=== PATIENT | female | born 2000 | race Caucasian/White ===

== ENCOUNTER 2022-06-06 01:52 | Observation (INO) | payer BC ==
--- OUTSIDE RECORDS SUMMARY | 2022-06-06 01:55 | XMS REPORT | Continuity of Care Document ---
:2000 Author Organization [facility] t Address [address] [place] [address] [address]. [address] [place] [address] Care Team Providers Name Role Phone JEOVANNY DIANE BURNS Primary Care Physician Unavailable Ayo Panchal Attending Clinician Unavailable Kristal Amos Attending Clinician Unavailable Susan YE, Christine Attending Clinician Unavailable VISHAL PUTNAM Attending Clinician Unavailable Vishal Conte Attending Clinician Giuliano Maciel MD Attending Clinician ANASTASIIA COWART Attending Clinician Unavailable Provider, [facility] Attending Clinician Unavailable Gerda Pastrana Attending Clinician GERDA OR Attending Clinician Unavailable Payers Payer Name Policy Type Policy Number Effective Date Expiration Date S ource Problems Condition Condition Condition Status Onset Resolution Last Treating Co mments Source Name Details Category Date Date Treatment Clinician Date No known No known Disease Unive rs active active ity of problems problems [facility] Allergies, Adverse Reactions, Alerts Allergy Allergy Status Severity Reaction(s) Onset Inactive Treating Comm ents Source Name Type Date Date Clinician NO KNOWN Drug Active Univers ALLERGIE Class ity of S [facility] Social History Social Habit Start Date Stop Date Quantity Comments Source Exposure to Not sure [facility] SARS-CoV-2 (event) Medica l Branch Tobacco use and 2020-12-05 2020-12-05 Never used [facility] exposure 00:00:00 00:00:00 [facility] Sex Assigned At [birth year] [facility] 00:00:00 00:00:00 [facility] Smoking Status Start Date Stop Date Source Never smoker [facility] Medications Ordered Filled Start Stop Current Ordering Indication Dosage Frequency Signature Comments Components Source Medication Medication Date Date Medication? Clinician (SIG) Name Name naproxen Yes [id number] 500mg Take 1 Univers 500 mg 6-13 9107 tablet by ity of tablet 00:00: mouth 2 (two) Medical times Branch daily with meals. naproxen Yes [id number] 500mg Take 1 Univers 500 mg 6-13 9107 tablet by ity of tablet 00:00: mouth 2 (two) Medical times Branch daily with meals. naproxen Yes [id number] 500mg Take 1 Univers 500 mg 6-13 9107 tablet by ity of tablet 00:00: mouth 2 (two) Medical times Branch daily with meals. naproxen Yes [id number] 500mg Take 1 Univers 500 mg 6-13 9107 tablet by ity of tablet 00:00: mouth 2 (two) Medical times Branch daily with meals. AUROVELA FE Yes 1{tbl} Take 1 Un tonia 1-20, 28, 1 4-20 tablet by ity of mg-20 mcg 00:00: mouth [place] (21)/75 mg 00 daily. Medical (7) tablet Branch AUROVELA FE Yes 1{tbl} Take 1 Un tonia 1-20, 28, 1 4-20 tablet by ity of mg-20 mcg 00:00: mouth [place] (21)/75 mg 00 daily. Medical (7) tablet Branch AUROVELA FE Yes 1{tbl} Take 1 Un tonia 1-20, 28, 1 4-20 tablet by ity of mg-20 mcg 00:00: mouth [place] (21)/75 mg 00 daily. Medical (7) tablet Branch AUROVELA FE Yes 1{tbl} Take 1 Un tonia 1-20, 28, 1 4-20 tablet by ity of mg-20 mcg 00:00: mouth [place] (21)/75 mg 00 daily. Medical (7) tablet Branch Vital Signs Vital Name Observation Time Observation Value Comments Source Systolic blood 2021-05-04 19:56:00 125 mm[Hg] Univer sity of pressure [facility] Diastolic blood 2021-05-04 19:56:00 89 mm[Hg] Unive rsity of pressure [facility] Heart rate 2021-05-04 19:56:00 76 /min [facility] Body temperature 2021-05-04 19:56:00 36.5 Georgette Univ ers[facility] [place] [facility] Respiratory rate 2021-05-04 19:56:00 18 /min [facility] Body weight 2021-05-04 19:56:00 72.077 kg [facility] BMI 2021-05-04 19:56:00 25.65 kg/m2 [facility] Oxygen saturation in 2021-05-04 19:56:00 99 /min University of Arterial blood by [facility] Pulse oximetry Branch Systolic blood 2020-12-05 14:18:00 126 mm[Hg] Univer sity of pressure [facility] Diastolic blood 2020-12-05 14:18:00 81 mm[Hg] Unive rsity of pressure [facility] Heart rate 2020-12-05 14:17:00 77 /min [facility] Body temperature 2020-12-05 14:17:00 36.78 Georgette [facility] Respiratory rate 2020-12-05 14:17:00 16 /min Univ [facility] Body height 2020-12-05 14:17:00 167.6 cm [facility] Body weight 2020-12-05 14:17:00 68.04 kg [facility] BMI 2020-12-05 14:17:00 24.21 kg/m2 [facility] Oxygen saturation in 2020-12-05 14:17:00 98 /min University of Arterial blood by [facility] Pulse oximetry Branch Procedures This patient has no known procedures. Encounters Start End Encounter Admission Attending Care Care Encounter Source Date/Time Date/Time Type Type Clinicians Facility Department ID 2021-07-20 Outpatient YESI Panchal [facility] [id number] Common 13:29:35 Avnee [address] [facility] 2021-07-20 Outpatient YESI Panchal [facility] [id number] Common 13:29:30 Avnejohn [address] [facility] 2021-07-20 Outpatient Ansley STJONAHLC [facility] [id number] Common 13:28:05 Ayo [address] [facility] 2021-07-20 Outpatient Dandre STLMLC [facility] [id number] Common 11:24:53 Kristal [address] [facility] 2021-05-05 2021-05-05 Telephone MARJ Davis [id number] Univers 00:00:00 00:00:00 Christine GONZALEZ [id number] it y of [facility] [id number] Camron as [id number] [address] 2021-05-04 2021-05-04 [facility] [id number] Univers 14:00:00 14:24:44 VISHAL rodriguez o f [facility] 2021-05-04 2021-05-04 Urgent [facility] [id number] Univers 13:47:22 14:07:22 Care Vishal [facility] [id number] ity of [place] [id number] Camron as LATHA?BLEA [id number] Ct dical BALDEVE[address] [place] MEDICAL OFF[facility] 2021-01-03 2021-01-03 [facility] [id number] Univers 00:00:00 00:00:00 [facility] [id number] it y of [place] [id number] Camron as Professio [id number] Ct [address] Office Building One 2020-12-08 2020-12-08 Outpatient R SOFYA [facility] [id number] Univers 08:45:00 08:45:00 ANASTASIIA rodriguez [facility] 2020-12-05 2020-12-05 Urgent Provider, [facility] [id number] Univers 09:13:39 09:33:39 Care Gerda Ro [facility] [id number] ity of [place] [id number] [place]ron as Kady [phone] [address] [place] [address] Branch Office [facility] One 2020-12-05 2020-12-05 Outpatient Mynor RO [facility] [id number] Univers 09:20:00 09:20:00 GERDA rodriguez [facility] Results This patient has no known results.
[2022-06-06] MEDS ORDERED: FAMOTIDINE 20 MG/2 ML VIAL IV ONE (02:38)
[2022-06-06] MEDS ORDERED: MAGNES/ALUMIN/SIMET 30ML UCUP ONE (02:38)
[2022-06-06] MEDS ORDERED: MORPHINE 4 MG/ML SYR ONE (02:38)
[2022-06-06] MEDS ORDERED: ONDANSETRON 4 MG/2 ML VIAL ONE (02:38)
[2022-06-06] MEDS ORDERED: LIDOCAINE VISCOUS 2% SOLN 15 ML UDC ONE (02:38)
[2022-06-06 02:48] LABS: Urine Blood Negative (Negative); Urine Glucose Negative (Negative); Urine Protein Negative (Negative); Urine Specific Gravity >=1.030 (1.005-1.030)
[2022-06-06 03:28] LABS: Absolute Lymphocytes (CBC) 1.2 K/uL (0.7-4.9); Hematocrit 43.8 % (36.0-45.0); Lymphocytes % 11.6 % (15.3-44.8); MPV 8.2 fL (7.6-11.3); RBC Red Blood Cell Count 5.09 M/uL (3.86-4.86)
[2022-06-06 03:39] LABS: Urine Specific Gravity/Preg >1.030 (1.005-1.030)
[2022-06-06 03:49] LABS: Albumin 4.1 g/dL (3.4-5.0); Bilirubin Total 1.6 mg/dL (0.2-1.0); Potassium 3.9 mmol/L (3.5-5.1); Protein, Total 8.7 g/dL (6.4-8.2)
--- NOTE | 2022-06-06 05:18 | EDPHYS ---
Physician Documentation [facility] Name: Edel Rucker Age: 22 yrs Sex: Female : 2000 Arrival Date: 06/06/2022 Time: 01:55 Bed 14 Private MD: ED Physician Brandon Peres HPI: 06/06 02:44 This 22 yrs old Female presents to ER via Ambulatory with complaints of Abdominal Pain. rn 02:46 The patient presents with abdominal pain in the epigastric area, in the right upper rn quadrant. Onset: The symptoms/episode began/occurred yesterday. The symptoms do not radiate. Associated signs and symptoms: Pertinent positives: nausea and vomiting, Pertinent negatives: blood in stools, diarrhea, fever, hematuria, shortness of breath, vomiting. The symptoms are described as crampy, sharp. Modifying factors: The symptoms are alleviated by nothing, the symptoms are aggravated by touching the area. Severity of pain: At its worst the pain was moderate in the emergency department the pain has improved. The patient has experienced similar episodes in the past. The patient has not recently seen a physician. BANDER: 02:23 LMP N/A - control method vc1 Historical: - Allergies: 02:20 No Known Allergies; vc1 - Home Meds: 02:20 None [Active]; vc1 - PMHx: 02:20 None; vc1 - PSHx: 02:20 None; vc1 - Immunization history:: Client reports having NOT received the Covid vaccine. - Social history:: Smoking status: Patient denies any tobacco usage or history of. - Family history:: not pertinent. - Hospitalizations: : No recent hospitalization is reported. ROS: 02:46 Constitutional: Negative for fever, chills, and weight loss, Eyes: Negative for injury, rn pain, redness, and discharge, Neck: Negative for injury, pain, and swelling, Cardiovascular: Negative for palpitations, and edema, Respiratory: Negative for shortness of breath, cough, wheezing, and pleuritic chest pain, Abdomen/GI: + RUQ abd pain Back: Negative for injury and pain, MS/Extremity: Negative for injury and deformity, Skin: Negative for injury, rash, and discoloration, Neuro: Negative for headache, weakness, numbness, tingling, and seizure. Exam: 02:46 Constitutional: This is a well developed, well nourished patient who is awake, alert, rn and in no acute distress. Head/Face: Normocephalic, atraumatic. Cardiovascular: Regular rate and rhythm. No pulse deficits. Respiratory: No increased work of breathing, no retractions or nasal flaring. Abdomen/GI: soft, + RUQ and epigastric abd tenderness Skin: Warm, dry MS/ Extremity: Pulses equal, no cyanosis. Neuro: Awake and alert, GCS 15 Vital Signs: 02:14 Weight 77.11 kg; Height 5 ft. 6 in. (167.64 cm); Pain 7/10; vc1 02:24 BP 125 / 73; Pulse 85; Resp 17; Temp 97.5; Pulse Ox 100% ; vc1 03:32 BP 132 / 55; Pulse 64; Resp 18; Temp 97.8; Pulse Ox 99% on R/A; Pain 2/10; pf1 04:30 BP 117 / 67; Pulse 77; Resp 18; Pulse Ox 100% ; Pain 0/10; pf1 05:30 BP 115 / 61; Pulse 74; Resp 18; Temp 99.5; Pulse Ox 99% ; Pain 0/10; pf1 06:30 BP 114 / 61; Pulse 65; Resp 18; Pulse Ox 98% ; Pain 1/10; pf1 02:14 Body Mass Index 27.44 (77.11 kg, 167.64 cm) vc1 MDM: 01:56 Patient medically screened. rn 05:14 Differential diagnosis: cholecystitis, Cholelithiasis, diverticulitis, gastritis, rn gastroesophageal reflux disease, non-specific abd pain, pancreatitis. Data reviewed: vital signs, nurses notes, lab test result(s), radiologic studies, CT scan, ultrasound, and as a result, I will admit patient. Counseling: I had a detailed discussion with the patient and/or guardian regarding: the historical points, exam findings, and any diagnostic results supporting the discharge/admit diagnosis, lab results, radiology results, the need for further work-up and treatment in the hospital. Response to treatment: the patient's symptoms have markedly improved after treatment, and as a result, I will admit patient. Admission orders: after a detailed discussion of the patient's condition and case, the admit orders are written by me. ED course: Pt with hours of pain, cholelithiasis with mild gallbladder swelling, no cholecystitis, but abnormal LFTs without any to compare to. Will admit for further w/u, MRCP, GI consult, and surgical consult. . 06/06 02:21 Order name: CBC with Diff; Complete Time: 03:46 06/06 02:21 Order name: CMP; Complete Time: 03:51 06/06 02:21 Order name: Lipase; Complete Time: 03:51 06/06 02:48 Order name: Urine Dipstick-Ancillary; Complete Time: 03:01 EDPA 06/06 02:49 Order name: Urine --Ancillary (enter results); Complete Time: 03:46 [facility] 06/06 05:18 Order name: SARS RAPID; Complete Time: 18:04 06/06 02:21 Order name: CT Abd/Pelvis - IV Contrast Only 06/06 02:21 Order name: US Abdomen Limited 06/06 09:46 Order name: MRI; Complete Time: 18:04 [facility] 06/06 11:19 Order name: CBC with Automated Diff; Complete Time: 18:04 [facility] 06/06 12:06 Order name: Comprehensive Metabolic Panel; Complete Time: 18:04 [facility] 06/06 12:07 Order name: Magnesium; Complete Time: 18:04 [facility] 06/06 12:07 Order name: Lipase; Complete Time: 18:04 [facility] 06/06 02:21 Order name: IV Saline Lock; Complete Time: 03:23 06/06 02:21 Order name: Labs collected and sent; Complete Time: 03:23 06/06 02:21 Order name: Urine Dipstick-Ancillary (obtain specimen); Complete Time: 02:47 06/06 02:21 Order name: Urine Test (obtain specimen); Complete Time: 02:47 rn Administered Medications: 03:00 Drug: Pepcid (famotidine) 20 mg Route: IVP; Site: left antecubital; pf1 03:33 Follow up: Response: Adverse reaction, Physician notified; Pain is decreased; RASS: pf1 Alert and Calm (0) 03:00 Drug: Zofran (Ondansetron) 4 mg Route: IVP; Site: left antecubital; pf1 03:33 Follow up: Response: No adverse reaction; Nausea is decreased pf1 03:00 Drug: morphine 4 mg Route: IVP; Infused Over: 4 mins; Site: left antecubital; pf1 03:33 Follow up: Response: Adverse reaction, Physician notified; Pain is decreased; RASS: pf1 Alert and Calm (0) 03:14 Drug: GI Cocktail without - (Maalox Suspension 30 ml, Lidocaine Liquid 2 % 15 pf1 ml) Route: PO; 03:32 Follow up: Response: Pain is decreased; RASS: Alert and Calm (0) pf1 Disposition Summary: 06/06/22 05:17 Hospitalization Ordered Hospitalization Status: Observation rn Provider: Karissa Peralta rn Condition: Stable rn Problem: new rn Symptoms: have improved rn Bed/Room Type: Standard rn Location: Telemetry/MedSurg (observation)(06/06/22 18:55) bd Room Assignment: [facility](06/06/22 18:55) bd Diagnosis - Other cholelithiasis without obstruction rn - Abnormal results of liver function studies rn - Abdominal pain, unspecified finance intern Instructions: - Discharge Summary Sheet sb4 - Magnetic Resonance Cholangiopancreatogram sb4 Forms: - Medication Reconciliation Form rn - SBAR form rn Signatures: Dispatcher [employer] EDMigdalia Horton Roman, MD MD rn Garcia, Cindy, RN RN cg Calcote, Vanessa, RN RN Haley Bolden PA-C PAGretchen sb4 Namrata aguilera RN RN pf1 Corrections: (The following items were deleted from the chart) 06:17 05:17 Telemetry/MedSurg (observation) rn cg 06:17 05:17 rn cg 18:55 06:17 [facility] ER HOLD cg bd 18:55 06:17 ERHOLD- cg bd
--- NOTE | 2022-06-06 05:18 | ER ---
Nurse's Notes [facility] Name: Edel Rucker Age: 22 yrs Sex: Female : 2000 Arrival Date: 06/06/2022 Time: 01:55 Bed 14 Private MD: Diagnosis: Other cholelithiasis without obstruction;Abnormal results of liver function studies;Abdominal pain, unspecified Presentation: 06/06 02:14 Chief complaint: Patient states: "I am having abdominal pain on my right side that is vc1 moving up to my chest.". Coronavirus screen: Vaccine status: Patient reports being unvaccinated. At this time, the client does not indicate any symptoms associated with coronavirus-19. Ebola Screen: No symptoms or risks identified at this time. Risk Assessment: Do you want to hurt yourself or someone else? Patient reports no desire to harm self or others. Onset of symptoms is unknown. 02:14 Method Of Arrival: Ambulatory vc1 02:14 Acuity: CHARLENE 3 vc1 02:26 Initial Sepsis Screen: Does the patient meet any 2 criteria? No. Patient's initial vc1 sepsis screen is negative. Does the patient have a suspected source of infection? Yes: Acute abdominal pain. Triage Assessment: 02:21 General: Appears in no apparent distress. uncomfortable, Behavior is calm, cooperative, vc1 appropriate for age. Pain: Complains of pain in right upper quadrant Pain radiates to right mid back and chest Pain currently is 7 out of 10 on a pain scale. Neuro: Level of Consciousness is awake, alert, obeys commands, Oriented to person, place, time, situation, Appropriate for age. Cardiovascular: Capillary refill < 3 seconds Patient's skin is warm and dry. Respiratory: Airway is patent Respiratory effort is even, unlabored, Respiratory pattern is regular, symmetrical. GI: Abdomen is round non-distended, Reports upper abdominal pain, bloating, gaseousness. : No deficits noted. No signs and/or symptoms were reported regarding the genitourinary system. Derm: No deficits noted. No signs and/or symptoms reported regarding the dermatologic system. Musculoskeletal: No deficits noted. No signs and/or symptoms reported regarding the musculoskeletal system. REHAB OFFICE COORDINATOR: 02:23 LMP N/A - control method vc1 Historical: - Allergies: 02:20 No Known Allergies; vc1 - Home Meds: 02:20 None [Active]; vc1 - PMHx: 02:20 None; vc1 - PSHx: 02:20 None; vc1 - Immunization history:: Client reports having NOT received the Covid vaccine. - Social history:: Smoking status: Patient denies any tobacco usage or history of. - Family history:: not pertinent. - Hospitalizations: : No recent hospitalization is reported. Screenin:23 Abuse screen: Denies threats or abuse. Nutritional screening: No deficits noted. vc1 Tuberculosis screening: No symptoms or risk factors identified. Fall Risk No fall in past 12 months (0 pts). Assessment: 02:30 General: Appears in no apparent distress. comfortable, well groomed, well developed, pf1 Behavior is calm, cooperative, appropriate for age, quiet. 02:30 Pain: Complains of pain in right upper quadrant Pain currently is 7 out of 10 on a pain pf1 scale. Pain began last night. Neuro: No deficits noted. Level of Consciousness is awake, alert, obeys commands, Oriented to person, place, time, situation. Cardiovascular: No deficits noted. Heart tones S1 S2 Capillary refill < 3 seconds. Respiratory: No deficits noted. Airway is patent Breath sounds are clear bilaterally. GI: Abdomen is round non-distended, Bowel sounds present X 4 quads. Abd is soft and non tender. : No deficits noted. No signs and/or symptoms were reported regarding the genitourinary system. EENT: No deficits noted. No signs and/or symptoms were reported regarding the EENT system. Vital Signs: 02:14 Weight 77.11 kg; Height 5 ft. 6 in. (167.64 cm); Pain 7/10; vc1 02:24 BP 125 / 73; Pulse 85; Resp 17; Temp 97.5; Pulse Ox 100% ; vc1 03:32 BP 132 / 55; Pulse 64; Resp 18; Temp 97.8; Pulse Ox 99% on R/A; Pain 2/10; pf1 04:30 BP 117 / 67; Pulse 77; Resp 18; Pulse Ox 100% ; Pain 0/10; pf1 05:30 BP 115 / 61; Pulse 74; Resp 18; Temp 99.5; Pulse Ox 99% ; Pain 0/10; pf1 06:30 BP 114 / 61; Pulse 65; Resp 18; Pulse Ox 98% ; Pain 1/10; pf1 02:14 Body Mass Index 27.44 (77.11 kg, 167.64 cm) vc1 ED Course: 01:55 Patient arrived in ED. [id number] 01:56 Brandon Peres MD is Attending Physician. rn 02:20 Triage completed. vc1 02:23 Arm band placed on left wrist. vc1 02:30 Patient has correct armband on for positive identification. Placed in gown. Bed in low pf1 position. Call light in reach. 02:41 Namrata aguilera, RN is Primary Nurse. pf1 02:50 Missed attempt(s): 22 gauge in right forearm. pf1 03:00 No provider procedures requiring assistance completed. Inserted saline lock: 22 gauge pf1 in left antecubital area, using aseptic technique. Blood collected. 03:23 CBC with Diff Sent. pf1 03:23 CMP Sent. pf1 03:23 Lipase Sent. pf1 03:33 US Abdomen Limited In Process Unspecified. EDMS 04:17 CT Abd/Pelvis - IV Contrast Only In Process Unspecified. EDMS 05:17 Karissa Peralta MD is Hospitalizing Provider. rn 05:27 SARS RAPID Sent. pf1 06:30 Patient admitted, IV remains in place. pf1 Administered Medications: 03:00 Drug: Pepcid (famotidine) 20 mg Route: IVP; Site: left antecubital; pf1 03:33 Follow up: Response: Adverse reaction, Physician notified; Pain is decreased; RASS: pf1 Alert and Calm (0) 03:00 Drug: Zofran (Ondansetron) 4 mg Route: IVP; Site: left antecubital; pf1 03:33 Follow up: Response: No adverse reaction; Nausea is decreased pf1 03:00 Drug: morphine 4 mg Route: IVP; Infused Over: 4 mins; Site: left antecubital; pf1 03:33 Follow up: Response: Adverse reaction, Physician notified; Pain is decreased; RASS: pf1 Alert and Calm (0) 03:14 Drug: GI Cocktail without - (Maalox Suspension 30 ml, Lidocaine Liquid 2 % 15 pf1 ml) Route: PO; 03:32 Follow up: Response: Pain is decreased; RASS: Alert and Calm (0) pf1 Medication: 02:24 VIS not applicable for this client. vc1 Outcome: 05:17 Decision to Hospitalize by Provider. rn 06:30 Condition: stable pf1 06:30 Admitted to ER Hold. Please see [facility] for further documentation. pf1 06:30 Instructed on the need for admit, Demonstrated understanding of instructions. 20:13 Patient left the ED. pf1 Signatures: Dispatcher [employer] EDIA Brandon Peres MD MD rn Jeffries, Jennifer [id number] Calcote, Vanessa, RN RN vc1 Namrata aguilera RN RN pf1 Corrections: (The following items were deleted from the chart) 03:29 03:00 Inserted saline lock: 22 gauge in left antecubital area, using aseptic technique. pf1 pf1 03:29 02:50 Missed attempt(s): 22 gauge in right forearm. pf1 pf1
--- NOTE | 2022-06-06 05:23 | P.HP ---
Certification for Inpatient Patient admitted to: Observation With expected LOS: <2 Midnights Patient will require the following post-hospital care: None Practitioner: I am a practitioner with admitting privileges, knowledge of patient current condition, hospital course, and medical plan of care. Services: Services provided to patient in accordance with Admission requirements found in Title 42 Section 412.3 of the Code of Federal Regulations Patient History Date of Service: 06/06/22 Reason for admission: Cholelithiasis, Intractable Abd Pain History of Present Illness: Patient is a 22 year old female with no medical history who presented to the ED with complaints of RUQ and epigastric abdominal pain that began this evening. She associates it with nausea and vomiting and reports the pain as crampy. She states she has had 2 prior similar episodes this month but thought it was secondary to gas. Ct abdomen pelvis and Abdominal ultrasound both showed cholelithiasis without secondary signs to suggest acute cholecystitis. Labs significant for AST 333, ALT 298, tbili 1.6. Pain was only relieved after morphine. ED provider wishes to admit patient for further evaluation and treatment- MRCP, surgery/GI consults. Home medications list reviewed: Yes (OCPs) - Past Medical/Surgical History Diabetic: No Past Medical History: Patient denies medical history Past Surgical History: Patient denies surgical history Psychosocial/ Personal History: Patient lives at home with her family. - Family History Family History: Reviewed- Non-Contributory - Social History Smoking Status: Never smoker Alcohol use: No CD- Drugs: No Caffeine use: Yes Place of Residence: Home Review of Systems Gastrointestinal: Nausea, Vomiting, Abdominal Pain Physical Examination - Vital Signs Temperature: 97.8 F Blood Pressure: 132/55 Pulse: 64 Respirations: 18 Pulse Ox (%): 99 - Physical Exam General: Alert, In no apparent distress HEENT: Atraumatic, PERRLA, EOMI, Sclerae nonicteric Neck: Supple, 2+ carotid pulse no bruit Respiratory: Clear to auscultation bilaterally, Normal air movement Cardiovascular: Regular rate/rhythm, Normal S1 S2 Gastrointestinal: Normal bowel sounds, Non-distended, Tenderness (RUQ/Epigastric) Musculoskeletal: No tenderness Integumentary: No rashes Neurological: Normal speech, Normal strength at 5/5 x4 extr, Normal tone, Normal affect - Studies Laboratory Data (last 24 hrs) 06/06/22 03:10: Sodium 135 L, Potassium 3.9, BUN 10, Creatinine 0.97, Glucose 140 H, Total Bilirubin 1.6 H, AST 333 H*, ALT 298 H, Alkaline Phosphatase 87, Lipase 139 06/06/22 03:10: WBC 10.70, Hgb 15.2 H, Hct 43.8, Plt Count 305 Assessment and Plan - Problems (Diagnosis) (1) Cholelithiasis Current Visit: Yes Status: Acute Qualifiers: Cholelithiasis location: gallbladder Cholecystitis presence: without cholecystitis Biliary obstruction: without biliary obstruction Qualified Code(s): K80.20 - Calculus of gallbladder without cholecystitis without obstruction (2) Elevated LFTs Current Visit: Yes Status: Acute - Plan Patient is admitted for further evaluation of cholelithiasis with elevated LFTs. Will keep patient NPO and obtain MRCP this morning. GI and general surgery have been consulted. Will continue supportive measures with IV fluids and pain medications. Trend LFTs as well. Discharge Plan: Home Plan to discharge in: 24 Hours - Advance Directives Does patient have a Living Will: No Does patient have a Durable POA for Healthcare: No - Code Status/Comfort Care Code Status Assessed: Yes Code Status: Full Code Physician Review: Patient Assessed, Agree with Above Assessment and Plan Critical Care: No Time Spent Managing Pts Care (In Minutes): 50
[2022-06-06 05:54] LABS: SARS-CoV-2 Antigen Rapid Res Negative (Negative)
[2022-06-06 07:19] VITALS: BMI 27.4
[2022-06-06] MEDS ORDERED: ONDANSETRON 4 MG/2 ML VIAL IV PRN (07:19)
[2022-06-06] MEDS ORDERED: MORPHINE 4 MG/ML SYR IV PRN (07:19)
[2022-06-06] MEDS ORDERED: INFLUENZA VACCINE (for 6+ mo) 0.5 ML DOSE IMVAC ONE (08:00)
--- NOTE | 2022-06-06 09:45 | RAD REPORT ---
EXAM DESCRIPTION: MRI - Cholangiogram - 06/06/2022 9:14 am CLINICAL HISTORY: Abdominal pain, nausea COMPARISON: CT abdomen and pelvis June 06, abdomen ultrasound June 06 TECHNIQUE: Axial and coronal heavily T2 weighted sequences were obtained. Coronal T2 HASTE fat satur ation static and coronal multiplane reconstruction imaging generated and reviewed. Horizontal and judith tical axis rotational views obtained using maximum intensity projection (MIP) protocol. FINDINGS: Multi stone cholelithiasis is present and well filled gallbladder. Wall thickening and aram ma are not evident on this study. No cystic duct stone identifiable. No intrahepatic or extrahepatic biliary tree dilatation seen. No stricture, mass or intraluminal fill ing defect identifiable. Faintly visualized pancreatic duct is normal in size. No suspicious or unexpected findings otherwise noted. IMPRESSION: No choledocholithiasis nor biliary tree abnormality seen. Cholelithiasis without cholecystitis.
[2022-06-06] MEDS ORDERED: NA CHLORIDE 0.9% 1,000 ML ONE (10:48)
[2022-06-06 11:18] LABS: Absolute Lymphocytes (CBC) 2.4 K/uL (0.7-4.9); Hematocrit 41.9 % (36.0-45.0); MCV 86.2 fL (80-100); RBC Red Blood Cell Count 4.86 M/uL (3.86-4.86)
[2022-06-06 12:05] LABS: Albumin 3.6 g/dL (3.4-5.0); Bilirubin Total 2.3 mg/dL (0.2-1.0); Magnesium 2.3 mg/dL (1.6-2.4); Potassium 3.8 mmol/L (3.5-5.1); Protein, Total 7.8 g/dL (6.4-8.2)
[2022-06-06] MEDS: NA CHLORIDE 0.9% 1,000 ML IV SCH (12:13)
--- NOTE | 2022-06-06 17:40 | RAD REPORT ---
EXAM DESCRIPTION: US - Abdomen Exam Limited - 06/06/2022 3:32 am CLINICAL HISTORY: ABD PAIN TECHNIQUE: Real-time ultrasound of the right upper quadrant with image documentation. COMPARISON: No relevant prior studies available. FINDINGS: Gallbladder: Multiple small mobile gallstones. No gallbladder wall thickening or peric holecystic fluid. biotechnologist noted a sonographic negative Carrion's sign. Common bile duct: Unremarkable as visualized. No stones. No dilation. IMPRESSION: Cholelithiasis without secondary signs to suggest acute cholecystitis. Electronically signed by: Rama Good MD 06/06/2022 3:47 AM REPOSSESSION AGENT Due to temporary technical issues with the PACS/Fluency reporting system, reports are being signed by the in house radiologists without review as a courtesy to insure prompt reporting. The interpreting radiologist is fully responsible for the content of the report.
--- NOTE | 2022-06-06 17:44 | RAD REPORT ---
EXAM DESCRIPTION: CT - Abdomen Pelvis W Contrast - 06/06/2022 7:05 am CLINICAL HISTORY: The patient is 22 years old and is Female; upper abd pain TECHNIQUE: Axial computed tomography images of the abdomen and pelvis with intravenous contrast. S agittal and coronal reformatted images were created and reviewed. This CT exam was performed using one or more of the following dose reduction techniques: automated exposure control, adjustment of t he mA and/or kV according to patient size, and/or use of iterative reconstruction technique. COMPARISON: No relevant prior studies available. FINDINGS: LUNG BASES: Unremarkable. No mass. No consolidation. ABDOMEN: LIVER: Unremarkable. No mass. GALLBLADDER AND BILE DUCTS: A few punctate calcified gallstones are present within the distended gallbladder. There is no ductal dilatation. PANCREAS: No ductal dilation. No mass. SPLEEN: Unremarkable. ADRENALS: Unremarkable. No mass. KIDNEYS AND URETERS: Unremarkable. The kidneys enhance symmetrically. No obstructing renal or ur eteral calculus is seen. No hydronephrosis or hydroureter. No perinephric fluid or stranding. STOMACH AND BOWEL: The stomach is distended with food contents. The small bowel is normal in naye iber. Stool is present throughout colon. There is no mucosal thickening or evidence of bowel obstruct ion. PELVIS: APPENDIX: The appendix is normal in caliber without surrounding inflammation. BLADDER: The bladder is not well distended. REPRODUCTIVE: Unremarkable as visualized. ABDOMEN and PELVIS: INTRAPERITONEAL SPACE: Unremarkable. No free air. No significant fluid collection. BONES/JOINTS: No acute fracture. SOFT TISSUES: The soft tissues are normal. VASCULATURE: Unremarkable. No abdominal aortic aneurysm. LYMPH NODES: Unremarkable. No enlarged lymph nodes. IMPRESSION: Cholelithiasis without findings to suggest cholecystitis. Electronically signed by: Bindu Luong MD 06/06/2022 4:30 AM ICE CREAM FREEZER ASSISTANT Due to temporary technical issues with the PACS/Fluency reporting system, reports are being signed by the in house radiologists without review as a courtesy to insure prompt reporting. The interpreting radiologist is fully responsible for the content of the report.
[2022-06-07] MEDS: NA CHLORIDE 0.9% 1,000 ML IV SCH ×3 (02:40→13:19)
[2022-06-07 04:08] LABS: Absolute Lymphocytes (CBC) 3.3 K/uL (0.7-4.9); Hematocrit 38.7 % (36.0-45.0); Lymphocytes % 37.5 % (15.3-44.8); MPV 8.2 fL (7.6-11.3); RBC Red Blood Cell Count 4.45 M/uL (3.86-4.86)
[2022-06-07 04:31] LABS: Bilirubin Total 1.2 mg/dL (0.2-1.0); Magnesium 2.1 mg/dL (1.6-2.4); Phosphorus 2.9 mg/dL (2.5-4.9); Potassium 3.8 mmol/L (3.5-5.1); Protein, Total 6.8 g/dL (6.4-8.2); Thyroid Stimulating Hormone 3.41 uIU/mL (0.358-3.740)
[2022-06-07] MEDS ORDERED: KCL 20 MEQ/100 mL IVPB 20 MEQ/100 ML BAG IV SCH (06:00)
[2022-06-07] MEDS: CEFOXITIN SODIUM 1 GM/VIAL ONE ×2 (07:49→08:55)
--- NOTE | 2022-06-07 08:28 | CON ---
Date of Consultation: 06/06/2022 This patient was seen in the ER. History Of Present Illness: This is the case of a 22-year-old patient, comes with abdominal pain for 1 day of duration. She was eating some whataburger for lunch and she was eating something else for breakfast that is greasy, in the afternoon had some pasta and then the pain developed, a little bit p freddy after midnight. The pain was getting worse, so the mother brought her to the ER. Her mother is 1 of our nurses, who works in the system. She came this morning to the ER. She was found with epig astric right upper quadrant pain, nausea, bloating. She said about a few weeks ago she had the same episode, but got better on its own. She denies any dysuria, hematuria, hematochezia, melena. Denies any recent traveling out of the country. Denies any family member sick at home. Review of Systems: Positive for nausea, bloating, vomiting, and abdominal pain. Ten points otherwise unremarkable. Past Medical History: None. Past Surgical History: None. Social History: She does not smoke. She does not drink alcohol. Family History: Unremarkable. Physical Examination: General: The patient is awake, alert. HEENT: Pupils are equal and reactive. Anicteric. Neck: Supple. Chest: Clear. Heart: S1, S2. Abdomen: Epigastric right upper quadrant tenderness. Rectal: Deferred. Pelvic: Deferred. Breasts: Deferred. Extremities: Good capillary refill. Laboratory Data: Blood work shows a total bilirubin of 1.6, AST is 333, ALT 298, alkaline phosphatas e 87. WBC count of 10.7 with platelets of 305. Ultrasound of the abdomen and pelvis shows cholelith iasis. Abdominal CT shows cholelithiasis. An MRCP done due to LFTs, findings show no choledocholith iasis, no biliary tree abnormality seen. Assessment: This is a 22-year-old patient with acute cholecystitis, symptomatic cholelithiasis, incr eased liver enzymes. Benefits, alternatives, and risks of laparoscopic possible open cholecystectomy fully explained, which include, but not limited to infection, bleeding, damage to adjacent structure s, anesthesia complication, choledocholithiasis, bile leak, pancreatitis, NC, and even . She al so understands this may not relieve any symptoms. She might need more than one surgical intervention . She also advised to follow with her director ship on her LFTs. ANDREW/HIMA Voice ID: [id number] Report ID: [id number]
[2022-06-07] MEDS ORDERED: propofoL 200 MG/20 ML VIAL IV ONE (08:35)
[2022-06-07] MEDS ORDERED: ROCURONIUM 50 MG/5 ML VIAL IV ONE (08:36)
[2022-06-07] MEDS ORDERED: MIDAZOLAM HCL 2 MG/2 ML INJ ONE (08:36)
[2022-06-07] MEDS ORDERED: FENTANYL CITR 100 MCG/2 ML ONE ×2 (08:36→09:00)
[2022-06-07] MEDS ORDERED: LIDOCAINE 1% MPF 5 ML VIAL ONE (08:36)
[2022-06-07] MEDS ORDERED: NS 0.9% VIAL 10 ML ONE (08:46)
[2022-06-07] MEDS ORDERED: ONDANSETRON 4 MG/2 ML VIAL ONE (09:11)
[2022-06-07] MEDS ORDERED: dexAMETHasone 10 MG/ML VIAL ONE (09:11)
[2022-06-07] MEDS ORDERED: NEOSTIGMINE 1 MG/ML -5 ML ONE (09:11)
[2022-06-07] MEDS ORDERED: GLYCOPYRROLATE 0.2 MG/ML SYR ONE (09:11)
[2022-06-07] MEDS ORDERED: KETOROLAC 30 MG/ML INJ ONE (09:11)
[2022-06-07] MEDS ORDERED: SUGAMMADEX SODIUM 200 MG/2 ML VIAL IV ONE (09:18)
--- NOTE | 2022-06-07 09:18 | P.BOP ---
Preoperative diagnosis: acute cholecystitis, symptomatic cholelithiasis Postoperative diagnosis: same Primary procedure: Laparoscopic cholecystectomy Pack Out Operator: PEDRO OBANDO (GLASS OR MIRROR INSPECTOR) Estimated blood loss: <10cc Specimen: gb Findings: as above Anesthesia: General Complications: None Transferred to: Recovery Room Condition: Good
[2022-06-07] MEDS ORDERED: MORPHINE 10 MG/ML VIAL ONE (09:22)
[2022-06-07 09:44] VITALS: TEMP 97.5
[2022-06-07 10:02] VITALS: O2SAT 98
--- NOTE | 2022-06-07 10:39 | OP ---
Date of Procedure: 06/07/2022 Surgeon: Eros Corona MD Commercial Loan Specialist: Cathleen Deleon. Preoperative Diagnoses: Acute cholecystitis, symptomatic cholelithiasis. Postoperative Diagnoses: Acute cholecystitis, symptomatic cholelithiasis. Procedure: Laparoscopic cholecystectomy. Estimated Blood Loss: Less than 10 mL. Specimen: Gallbladder. Finding: As above. Anesthesia: General plus local. Indication: This is the case of a female, who comes to us, recently admitted with above diagnoses. Fully explained the benefits, alternatives, and risks of laparoscopic possible open cholecystectomy, which include, but not limited to infection, bleeding, damage to adjacent structures, anesthesia comp lication, choledocholithiasis, bile leak, pancreatitis, DE, and even . She also understands thi s may not relieve any symptoms. She might need more than one surgical intervention. She understood, signed a consent. She also understands to follow with her GI and primary doctor in the future for e valuation of the liver function tests. MRCP is negative. Procedure In Detail: The patient was brought to the operating room, placed in supine position. Anes thesia was done without complication. Abdominal area was prepped and draped in the usual sterile fas hion. Marcaine 0.5% was injected for local anesthetic followed by sharp incision of the skin in the infraumbilical region. Incision was carried down to fascia, which was opened under direct vision. P eritoneum was encountered, opened under direct vision. Vicryl #1 placed inside the fascia. Trip t rocar was carefully introduced. Pneumoperitoneum was obtained. I placed 3 more trocars, 5 mm each o ne of them in the epigastric right upper quadrant area under direct visualization. This allowed me t o put a grasper in the fundus of the gallbladder, another grasper in the infundibulum, retracting the gallbladder in the inferolateral fashion, exposing the triangle of Calot, and obtaining critical vie w. Cystic duct and cystic artery were clearly isolated, freed circumferentially and a connection bet ween those and the gallbladder were clearly identified. I proceeded to ligate those by using at leas t 3 clips proximal, 1 clip distal, ligation in middle. Same was done with the cystic artery. No juan francisco e leak, no bleeding. The gallbladder was removed from liver using Bovie cauterizer and removed from abdominal cavity using EndoCatch through the umbilical incision. The area was inspected once again. No bile leak, no bleeding. Gallbladder fossa was intact. Liver anterior and extra capsule smooth w ith no masses seen, stomach soft and compressible. At that moment, I proceeded to remove the trocars under direct vision. Deflated the pneumoperitoneum. Closed the fascia with #1 Vicryl. Irrigated t he subcutaneous tissue, closed that with 3-0 chromic and skin in a subcuticular fashion with 3-0 buffer chrome adwoa and Steri-Strips on top. Sponge count, instrument counts correct. The patient tolerated the pro cedure well. The patient was sent to recovery in stable condition. ANDREW/HIMA Voice ID: [id number] Report ID: [id number]
[2022-06-07 12:01] VITALS: BP 108/51
--- NOTE | 2022-06-07 13:22 | P.DS ---
Discharge Date: 06/07/22 Disposition: ROUTINE DISCHARGE Discharge Condition: GOOD Reason for Admission: Cholelithiasis, Intractable Abd Pain Consultations: General surgeon Brief History of Present Illness: Patient is a 22 year old female with no medical history who presented to the ED with complaints of RUQ and epigastric abdominal pain that began this evening. She associates it with nausea and vomiting and reports the pain as crampy. She states she has had 2 prior similar episodes this month but thought it was secondary to gas. Ct abdomen pelvis and Abdominal ultrasound both showed cholelithiasis without secondary signs to suggest acute cholecystitis. Labs significant for AST 333, ALT 298, tbili 1.6. Pain was only relieved after morphine. ED provider wishes to admit patient for further evaluation and treatment- MRCP, surgery/GI consults. Hospital Course: Patient has done well during hospital stay. Patient's clinical symptoms are improved. At this time, patient is stable for discharge with outpatient follow- up. Patient will follow-up with general surgery in 1 week. Patient will need liver function testing in 1 to 2 weeks. Vital Signs/Physical Exam: Temp Pulse Resp BP Pulse Ox 97.5 F 79 16 108/51 L 97 06/07/22 12:00 06/07/22 12:00 06/07/22 12:00 06/07/22 12:00 06/07/22 12:00 General: Alert, In no apparent distress, Oriented x3 Laboratory Data at Discharge: WBC 8.90 K/uL (4.3-10.9) 06/07/22 03:08 Hgb 13.1 g/dL (12.0-15.0) D 06/07/22 03:08 Hct 38.7 % (36.0-45.0) 06/07/22 03:08 Plt Count 251 K/uL (152-406) 06/07/22 03:08 Sodium 139 mmol/L (136-145) 06/07/22 03:08 Potassium 3.8 mmol/L (3.5-5.1) 06/07/22 03:08 BUN 9 mg/dL (7-18) 06/07/22 03:08 Creatinine 0.91 mg/dL (0.55-1.02) 06/07/22 03:08 Glucose 81 mg/dL (74-106) 06/07/22 03:08 Phosphorus 2.9 mg/dL (2.5-4.9) 06/07/22 03:08 Magnesium 2.1 mg/dL (1.6-2.4) 06/07/22 03:08 Total Bilirubin 1.2 mg/dL (0.2-1.0) H 06/07/22 03:08 AST 138 U/L (15-37) H 06/07/22 03:08 ALT 323 U/L (13-56) H* 06/07/22 03:08 Alkaline Phosphatase 88 U/L (45-117) 06/07/22 03:08 Triglycerides 77 mg/dL (<150) 06/07/22 03:08 Cholesterol 140 mg/dL (<200) 06/07/22 03:08 HDL Cholesterol 54 mg/dL (40-60) 06/07/22 03:08 Cholesterol/HDL Ratio 2.59 06/07/22 03:08 Lipase 106 U/L (73-393) 06/06/22 11:09 Home Medications: Amox/Clavulanate [Augmentin 875-125 Tab] 875 mg PO BID #10 tab 06/07/22 Codeine/APAP [Tylenol W/Codeine #3 tab] 1 tab PO Q6HP PRN #20 tab 06/07/22 New Medications: Amox/Clavulanate [Augmentin 875-125 Tab] 875 mg PO BID #10 tab Codeine/APAP [Tylenol W/Codeine #3 tab] 1 tab PO Q6HP PRN #20 tab PRN Reason: Pain Physician Discharge Instructions: -DC IV and DC home -Follow-up with PCP in 1 to 2 weeks -Follow-up with Surgery in 1 week -Please call Dr. Peralta at [phone] if any questions regarding hospital stay -Please call nursing station at [phone] if any nursing or medication questions -Return to the emergency room if symptoms worsen keep area dry for 48h then may remove outer dressing and shower. Keep sterile strips intact. Diet: AHA Activity: Weight bearing as tolerated Followup: Eros Corona MD [ACTIVE - CAN ADMIT] - 1 Week Ayo Panchal NP [Primary Care Provider] - If your Condition Changes Time spent managing pt's care (in minutes): 35
== END 2022-06-07 15:00 | disposition home or self-care (01) ==
LOC: ER 01:52 → INTOOBSV 05:17 → ERHOLD 05:17 → 4TH 19:57
PROVIDERS: ADMIT Hospitalist; ATTEND Hospitalist
PROC: 0FT44ZZ Resection of Gallbladder, Percutaneous Endoscopic Approach (ICD-10-PCS; principal; 2022-06-07 08:30)
DX: K80.00 Calculus of gallbladder with acute cholecystitis without obstruction (principal); R10.9 Unspecified abdominal pain; Z20.822 Contact with and (suspected) exposure to COVID-19; Z23 Encounter for immunization
CPT/HCPCS: 85025 ×3; 82977; 36415 ×2; 83735 ×2; 81025; 84100; 80061; 88304; 84443; 81003; 83690 ×2; 80053 ×3; 74177; 74181; 76705; 94010; 96375; 96374; 99285; 87811; 47562; Q9967; J2704; J2001; J3480; J2250; J3010 ×2; J1100; A4216; J2710; J7030 ×2; J0694; J2405 ×2; G0378